=== PATIENT | female | born 1975 | race Two or more races ===

== ENCOUNTER 2017-09-22 09:56 | Outpatient (CLI) | payer OTHER | END 2017-09-22 10:04 | disposition home or self-care (01) | LOC: SONOGRAMA 09:56 → MAMO-SONO 10:15 | DX: N84.0 Polyp of corpus uteri (principal); R10.2 Pelvic and perineal pain ==

== ENCOUNTER 2020-06-13 10:12 | Day surgery (SDC) | payer OTHER ==
[~2020-06-13 10:12] MED LIST: AMITRIPTYLINE H25 MG PO; MELOXICAM15 MG PO; ZANAFLEX2 M1 PO
[2020-06-13] MEDS ORDERED: MORGIDOX100 MG PO (14:08)
[2020-06-13] MEDS ORDERED: NAPR500T14 PO (14:08)
== END 2020-06-13 19:00 | disposition home or self-care (01) ==
LOC: CIR.AMB 10:12
PROVIDERS: ATTEND Obstetrics & Gynecology
DX: D25.0 Submucous leiomyoma of uterus (principal); N84.0 Polyp of corpus uteri; Z20.828 Contact with and (suspected) exposure to other viral communicable diseases

== ENCOUNTER 2020-10-03 08:03 | Outpatient (CLI) | payer OTHER ==
[~2020-10-03 08:03] MED LIST changes: +MORGIDOX100 MG PO; +NAPR500T14 PO
== END 2020-10-03 08:06 | disposition home or self-care (01) ==
LOC: NUCLEAR 08:03
DX: M54.2 Cervicalgia (principal); M25.512 Pain in left shoulder; M25.562 Pain in left knee; M25.561 Pain in right knee
CPT/HCPCS: 78315; A9503

== ENCOUNTER 2023-10-14 08:00 | Outpatient (CLI) | payer OTHER ==
[2023-10-14 09:10] LABS: PH,URINE 5.5 (5.0-8.0); URINE APPEARANCE Clear; URINE BILIRRUBIN Negative (NEGATIVE); URINE BLOOD Negative; URINE COLOR Yellow; URINE GLUCOSE Negative (NEGATIVE); URINE LEUKOCYTE Negative; URINE NITRATE Negative; URINE PROTEIN Negative (NEGATIVE); URINE UROBILINOGEN 0.2 E.U./dl
[2023-10-14 09:14] LABS: URINE EPITHELIAL CELLS 10.6 uL (0.0-38.8); URINE WBC 5.3 uL (0.0-23.2)
[2023-10-14 09:18] LABS: HEMATOCRIT 39.9 % (36.0-45.00); HEMOGLOBIN 13.6 g/dL (12.0-15.00); MEAN CELL VOLUME 82.5 fL (80.00-100.00); PLATELET COUNT 265 K/uL (150-450); RED BLOOD COUNT 4.84 M/uL (4.00-6.00); RED CELL DISTRIBUTION WIDTH 14.7 % (11.5-14.5)
[2023-10-14 09:27] LABS: URINE RBC 1.4 uL (0.0-20.8)
[2023-10-14 09:57] LABS: INR 0.96; PARTIAL THROMBOPLASTIN TIME 30.2 SECONDS (22.0-34.0); PROTHROMBIN TIME 10.1 SECONDS (9.0-11.5)
[2023-10-14 10:15] LABS: ALBUMIN 3.5 gm/dL (3.4-5.0); BILIRUBIN TOTAL 0.85 mg/dL (0.3-1.2); CALCIUM 9.1 mg/dL (8.5-10.1); CREATININE SERUM 0.73 mg/dL (0.55-1.02); GFR 84.73; GLOBULINA 3.6 G/DL (2.4-3.5); POTASSIUM 4.2 mEq/L (3.5-5.1); TOTAL PROTEIN 7.1 gm/dL (6.4-8.2); TSH 1.23 uIU/mL (0.358-3.74)
== END 2023-10-14 08:01 | disposition home or self-care (01) ==
LOC: RAD 08:00 → EDSTATUS 10-21 07:30 → CIR.AMB 10-21 07:30 → RAD 11-19 08:01
PROVIDERS: ATTEND Obstetrics & Gynecology
DX: N84.0 Polyp of corpus uteri (principal); D25.0 Submucous leiomyoma of uterus; N92.5 Other specified irregular menstruation; I10 Essential (primary) hypertension; R10.2 Pelvic and perineal pain; N91.1 Secondary amenorrhea; J45.909 Unspecified asthma, uncomplicated

== ENCOUNTER 2023-12-30 06:00 | Day surgery (SDC) | payer OTHER ==
[2023-12-21 09:52] LABS: URINE APPEARANCE Clear; URINE BILIRRUBIN Negative (NEGATIVE); URINE BLOOD Negative; URINE COLOR Yellow; URINE GLUCOSE Negative (NEGATIVE); URINE KETONE Negative (NEGATIVE); URINE LEUKOCYTE Moderate; URINE NITRATE Negative; URINE PROTEIN Negative (NEGATIVE); URINE UROBILINOGEN 0.2 E.U./dl
[2023-12-21 09:52] LABS: HEMATOCRIT 41.4 % (36.0-45.00); HEMOGLOBIN 13.9 g/dL (12.0-15.00); MEAN CELL VOLUME 82.9 fL (80.00-100.00); MEAN CORPUSCULAR HEMOGLOBIN 27.8 pg (27.00-32.0); MEAN CORPUSCULAR HGB CONC 33.6 g/dl (32.0-36.0); PLATELET COUNT 249 K/uL (150-450); RED BLOOD COUNT 4.99 M/uL (4.00-6.00); RED CELL DISTRIBUTION WIDTH 14.4 % (11.5-14.5)
[2023-12-21 09:53] LABS: URINE BACTERIA 3070.2 uL (0.0-1933); URINE EPITHELIAL CELLS 47.6 uL (0.0-38.8); URINE RBC 5.8 uL (0.0-20.8); URINE WBC 58.4 uL (0.0-23.2)
[2023-12-21 10:03] LABS: URINE CAST 0.45 uL (0.0-1.40)
[2023-12-21 10:57] LABS: INR 0.95; PARTIAL THROMBOPLASTIN TIME 31.2 SECONDS (22.0-34.0)
[2023-12-21 11:24] LABS: ALBUMIN 3.9 gm/dL (3.4-5.0); BILIRUBIN TOTAL 0.88 mg/dL (0.3-1.2); CALCIUM 9.7 mg/dL (8.5-10.1); CREATININE SERUM 0.69 mg/dL (0.55-1.02); GFR 90.43; GLOBULINA 3.6 G/DL (2.4-3.5); POTASSIUM 5.1 mEq/L (3.5-5.1); TOTAL PROTEIN 7.5 gm/dL (6.4-8.2)
[2023-12-21 11:53] LABS: TSH 0.872 uIU/mL (0.358-3.74)
[~2023-12-30] VITALS: Ht 165.1 cm; Wt 76.2 kg
[~2023-12-30 06:00] MED LIST changes: +TYLENOL ARTHRI650 MG PO
[2023-12-30] MEDS ORDERED: POVIDONE-IODINE 118 ML BOTT TOP ONE (10:00)
[2023-12-30] MEDS ORDERED: CEFOXITIN SODIUM 2,000 MG VIAL IV SCH (10:00)
[2023-12-30] MEDS ORDERED: MORPHINE SULFATE 4 MG/ML VIAL IV PRN (10:15)
[2023-12-30] MEDS ORDERED: PROMETHAZINE HCL 50 MG/ML AMPUL IM ONE (10:15)
[2023-12-30] MEDS ORDERED: MORGIDOX100 MG PO (10:16)
[2023-12-30] MEDS ORDERED: NAPR500T14 PO (10:16)
== END 2023-12-30 14:55 | disposition home or self-care (01) ==
LOC: CIR.AMB 06:00
PROVIDERS: ATTEND Obstetrics & Gynecology
DX: D25.0 Submucous leiomyoma of uterus (principal); N84.0 Polyp of corpus uteri; N95.0 Postmenopausal bleeding